=== PATIENT | male | born 1985 | race Caucasian/White ===

== ENCOUNTER 2017-05-28 11:37 | Emergency (ER) | payer OTHER ==
[~2017-05-28] VITALS: Ht 165.1 cm; Wt 68.2 kg
[2017-05-28] MEDS ORDERED: ESOM20CA31 PO (11:54)
[2017-05-28] MEDS ORDERED: TOLT2CAP27 PO (11:54)
[2017-05-28] MEDS ORDERED: NAPR-58 PO (11:54)
[2017-05-28 12:21] LABS: BASOPHILS % (AUTO) 0.2 % (0.0-2.0); EOSINOPHILS % (AUTO) 0.1 % (1.0-6.0); HEMATOCRIT 42.7 % (41-53); HEMOGLOBIN 14.8 g/dL (13.5-17.5); LYMPHOCYTES # (AUTO) 1.2 K/uL (1.0-4.8); LYMPHOCYTES % (AUTO) 9.2 % (22.0-44.0); MEAN CORPUSCULAR HEMOGLOBIN 29.8 pg (26.0-34.0); MEAN CORPUSCULAR HGB CONC 34.6 G/dL (31.0-37.0); MEAN CORPUSCULAR VOLUME 86 fL (80-100); MONOCYTES # (AUTO) 0.5 K/uL (0.1-1.0); MONOCYTES % (AUTO) 4.2 % (2.0-9.0); PLATELET COUNT (AUTO) 278 K/uL (150-450); RED BLOOD CELL COUNT(AUTO) 4.96 MIL/uL (4.50-5.90); RED CELL DISTRIBUTION WIDTH 12.4 % (11.5-14.5); WHITE BLOOD COUNT (AUTO) 12.8 K/uL (4.5-11.0)
[2017-05-28 12:22] LABS: NEUTROPHILS % (AUTO) 86.3 % (40.0-70.0)
[2017-05-28 12:36] LABS: ANION GAP 10 mmol/L (8-16); CALCIUM, TOTAL 9.2 mg/dL (8.8-10.5); CARBON DIOXIDE 27 mmol/L (22-29); CHLORIDE 103 mmol/L (98-107); CREATININE 1.25 mg/dL (0.60-1.30); GLOMERULAR FILTR. RATE CALC > 60 mL/min (>60); POTASSIUM 4.1 mmol/L (3.5-5.1); SODIUM SERUM 140 mmol/L (136-145); UREA NITROGEN, BLOOD 11 mg/dL (7-18)
[2017-05-28 12:42] LABS: ALANINE AMINOTRANSFERASE 61 U/L (12-78); ALBUMIN 4.6 g/dL (3.4-5.0); ASPARTATE AMINOTRANSFERASE 33 U/L (15-37); BILIRUBIN,TOTAL 1.8 mg/dL (0.1-1.0); TOTAL PROTEIN, SERUM 7.7 g/dL (6.4-8.2)
[2017-05-28 12:44] LABS: ACETAMINOPHEN < 2 mcg/mL (10-30)
[2017-05-28 12:48] LABS: SALICYLATE < 2.8 mg/dL (2.8-20.0)
[2017-05-28 14:50] VITALS: BP 138/95
== END 2017-05-28 15:03 | disposition home or self-care (01) ==
LOC: EMS 11:39
DX: F41.9 Anxiety disorder, unspecified (principal); T39.315A Adverse effect of propionic acid derivatives, initial encounter
CPT/HCPCS: 36415; 80053; 80307; 85025; 93005; 99285; G0480 ×2; G0481